=== PATIENT | male | born 1990 | race African-American/Black ===

== ENCOUNTER 2017-11-08 12:18 | Emergency (ER) | payer MEDICAID ==
[~2017-11-08] VITALS: Ht 180.3 cm; Wt 113.4 kg
[2017-11-08 12:23] VITALS: BP 181/99
== END 2017-11-08 13:10 | disposition home or self-care (01) ==
LOC: ER 12:22
DX: S09.90XA Unspecified injury of head, initial encounter (principal); V43.52XA Car driver injured in collision with other type car in traffic accident, initial encounter; Y93.89 Activity, other specified; Y92.410 Unspecified street and highway as the place of occurrence of the external cause; Y99.8 Other external cause status
CPT/HCPCS: A4606; Z7502; Z7610